=== PATIENT | male | born 1990 | race Caucasian/White ===

== ENCOUNTER 2019-01-15 03:18 | Emergency (ER) | payer OTHER ==
[~2019-01-15] VITALS: Ht 165.1 cm; Wt 70.5 kg
[2019-01-15 03:20] VITALS: BP 145/95; PULSE 74; RESP 16; Ht 165.1 cm; Wt 70.5 kg
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
== END 2019-01-15 04:05 | disposition home or self-care (01) ==
LOC: E/R 03:18
DX: S00.12XA Contusion of left eyelid and periocular area, initial encounter (principal); V89.2XXA Person injured in unspecified motor-vehicle accident, traffic, initial encounter
CPT/HCPCS: 99282